=== PATIENT | female | born 1990 | race Caucasian/White ===

== ENCOUNTER 2016-12-30 00:11 | Emergency (ER) | payer OTHER ==
--- NOTE | 2016-12-30 01:46 | ED NURSING NOTES ---
Clinical Report - Nurses [place] [address] [place] [address] 12/30/2016 0:15 Patient: KATHLEEN VAZQUEZ TRIAGE Triage time 00:20. Acuity: LEVEL 4. Chief Complaint: RIGHT LOWER EXTREMITY PAIN. --00:25 Jocelyne De R.N. 00:20 12/30/16. BP: 142/104 taken on the left arm, while lying. HR: 88 (regular and normal rate). RR: 18. O2 saturation: 95%. Temp: 98.2 F. Pain level now: 01/26. --00:25 Jocelyne De R.N. Weight: 71.6 kg stated. Height/Length: 65 inches Per Patient. BMI: 26.3. --00:22 Jocelyne De R.N. Medications None. --00:23 Jocelyne De R.N. Allergies No Known Drug Allergy. --00:23 Jocelyne De R.N. History Arrived by private vehicle. Historian: patient. Accompanied by friend. Primary physician (none). Injury occurred. This occurred just prior to arrival. ( running and heard a tear in left calf severe pain and tender to walk). She has had moderate trouble walking. The patient has been limping when trying to walk. Treatment TAX COMPLIANCE REPRESENTATIVE: Ice. PAST MEDICAL HX: Tetanus status: up-to-date. Immunizations: up-to-date. Last normal menstrual period- 8 days ago. 0. Para 0. Abortions 0. Sexual history - sexually active. No contraception. Denies current . SOCIAL HX: Never smoker. Occasional alcohol use. No drug use. No infectious disease exposure. ABUSE ASSESSMENT: No report of abuse. SELF HARM ASSESSMENT: A self harm assessment was performed. The patient answered "no" to the question "Have you recently felt down, depressed, or hopeless?", "Have you noticed less interest or pleasure in doing things?", "Do you have thoughts of harming or killing yourself?", "Are you here because you tried to hurt yourself?", "Have you ever tried to hurt yourself before today?", "Have you recently had thoughts about harming or killing others?" and "Do you have any dangerous items in your possession?". FALL RISK ASSESSMENT: Fall risk assessment completed. No fall risk identified. NUTRITIONAL RISK ASSESSMENT: The nutritional risk assessment revealed no deficiencies. FUNCTIONAL ASSESSMENT: Functional assessment: no impairments noted. LEARNING NEEDS ASSESSMENT: The learning needs assessment revealed no barriers. SKIN INTEGRITY ASSESSMENT: Skin integrity risk assessment completed. No skin integrity risk identified. --00:25 Jocelyne De R.N. ADDITIONAL SURGERIES: no known surgeries. Interventions ID band on patient. --00:25 Jocelyne De R.N. PHYSICAL ASSESSMENT To room via wheelchair. GENERAL / NEURO / PSYCH: Oriented X 4. Alert. Appears in no acute distress. EXTREMITIES: Increased with dorsiflexion right-sided calf tenderness. Extremity pulses are within normal limits. Extremities exhibit normal ROM. Neuro-vascular status intact to the extremity. No lower extremity edema. Normal gait. Left leg: tenderness. Limited weight bearing secondary to pain. SKIN: Skin intact. Skin is warm and dry. --00:25 Jocelyne De R.N. NURSING PROGRESS NOTES Two patient identifiers checked. Call light placed in reach. Side rails up x 1. Bed placed in lowest position. Brakes of bed on. Patient ready for evaluation- chart flagged. --00:26 Jocelyne De R.N. ( pt updated on wait time). --00:54 Jocelyne De R.N. <<STRICKEN ENTRY-- Wound cleansed. 3D boot applied to left foot by tech; distal pulses intact, sensation intact and motor function within normal limits. Patient fit with new crutches. Crutch training performed by tech; the patient demonstrated proper use. --02: [facility] Rebeca --END STRIKE>> No wound, therefore no wound cleansed. --: [facility] 3D boot applied to left foot by tech; distal pulses intact, sensation intact and motor function within normal limits. Patient fit with new crutches. Crutch training performed by tech; the patient demonstrated proper use. --: [facility] Re[facility]a. DISPOSITION / DISCHARGE Condition at departure: unchanged and stable. No learning barriers present. Discharge instructions provided and reviewed with the patient. Reviewed medication(s) side effects, precautions, dosing and course information. Prescription(s) given to the patient. Reviewed referral to an orthopedic surgeon for followup. Patient verbalized understanding. Written instructions provided in Albanian. The patient was discharged home and accompanied by family. She left the Emergency Department on crutches and via private vehicle. Family member driving. --02:34 Jocelyne De R.N. 02:23 12/30/16. BP: 138/94 taken on the left arm, while sitting. HR: 74 (regular and normal rate). RR: 18 (regular and unlabored). O2 saturation: 99% on room air. Temp: deferred. Pain level now: 12/27. --02:34 Jocelyne De R.N. Departure time: 222. --02:35 Jocelyne De R.N. Locked/Released at 12/30/2016 2:37 by Jocelyne De R.N.
--- NOTE | 2016-12-30 01:46 | ED ORDER SUMMARY ---
..... Patient: KATHLEEN VAZQUEZ OrderSheet [facility] VisitID: [id number] [address] [place] [address] 26y, F Registration Date/Time: 12/30/2016 ORDER SHEET Weight: 71.6 kg (stated) Allergies: No Known Drug Allergy GENERAL ORDERS: Orthopedic Boot (01:12/30/2016 Yaw WHITT) (2:19 [place]) Crutches (:12/30/2016 Yaw WHITT) (2:19 [place]) MEDICATION ORDERS: IV FLUIDS: ORDER SHEET NOTES: [Electronically signed by Jocelyne De R.N. (02:37 12/30/2016)] [Electronically signed by Dawit Queen MD (10:18 01/01/2017)] [Electronically locked/signed by Jocelyne De R.N. (02:37 12/30/2016)]
--- NOTE | 2016-12-30 01:46 | ED CLINICAL REPORT ---
Clinical Report - Physicians/Mid Levels [facility] [address] [place] [address] 12/30/2016 0:15 Patient: KATHLEEN VAZQUEZ Time Seen: 00:39. Arrived- By private vehicle. Historian- patient. HISTORY OF PRESENT ILLNESS Chief Complaint: Injury to left leg. The injury happened just prior to arrival. Occurred on a street. Injury secondary to other mechansim. Patient is experiencing severe pain. No other injury. (She was running and heard and felt a "pop" in her L calf. She says that she had strained her L leg earlier in the day). REVIEW OF SYSTEMS The patient complains of pain on weight bearing. She has had new onset of mild swelling of the left lower leg. No chills, fever, sweats, chest pain or cough. No difficulty breathing, pedal edema, palpitations, abdominal pain or constipation. No diarrhea, nausea, vomiting or urinary problems. All systems otherwise negative, except as recorded above. SOCIAL HISTORY Never smoker. Occasional alcohol use. No drug use. She lives with a family member. Has good social support. FAMILY HISTORY No significant family medical history. ADDITIONAL NOTES The nursing notes have been reviewed. PHYSICAL EXAM Vital Signs: 12/30/2016 00:20 BP: 142/104. HR: 88. RR: 18. O2 saturation: 95%. Temp: 98.2 F. Pain level now: 7/10. Have been reviewed. Appearance: Alert. Head: Head atraumatic. Eyes: Pupils equal, round and reactive to light. ENT: Pharynx normal. Neck: Neck supple. CVS: Heart sounds normal. Respiratory: Breath sounds normal. Abdomen: No visible injury. Back: ROM normal. Skin: Skin intact. Skin warm and dry. Normal skin color. Normal skin turgor. Extremities: Left leg. Gait: The patient was unable to bear weight. Neuro, Vascular and Tendons: Vascular status intact. Sensation intact. Motor intact. Functional tendon deficit left leg (L positive Brumfield's squeeze test). Neuro: No motor deficit. No sensory deficit. PROGRESS AND PROCEDURES Course of Care: Patient is stable. Patient/family counseled. Old medical records reviewed. Disposition: Discharged. Condition: stable. CLINICAL IMPRESSION Ruptured Achilles tendon left ankle. INSTRUCTIONS Apply ice for 20 minutes four times a day until better. Don't apply ice directly to skin and don't use while asleep. Use crutches until released. Wear boot orthosis until released. No driving or operating machinery while taking medication. You may walk and bear weight as tolerated. Warnings: COMPLICATIONS: Complications from this condition include: possible injury to a tendon. Future problems may include loss of function and pain. It is important to follow up with a physician for further evaluation and treatment. GENERAL WARNINGS: Return or contact your physician immediately if your condition worsens or changes unexpectedly, if not improving as expected, or if other problems arise. Prescription Medications: Hydrocodone/APAP 5mg/325mg: take 1 to 2 orally every 6 hours as needed for pain. Dispense fifteen (15). No refills. OTC Medications: Motrin (available over the counter): take according to label instructions. Understanding of the discharge instructions verbalized by patient, parent and family. [facility]up with: [facility], , [address], , [place], [address] Follow up tomorrow. Call for the next available appointment. (Electronically signed by Dawit Queen MD 01/01/2017 10:18)
--- NOTE | 2016-12-30 01:46 | ED ORDER SUMMARY ---
..... Patient: KATHLEEN VAZQUEZ OrderSheet [facility] VisitID: [id number] [address] [place] [address] 26y, F Registration Date/Time: 12/30/2016 ORDER SHEET Weight: 71.6 kg (stated) Allergies: No Known Drug Allergy GENERAL ORDERS: Orthopedic Boot (01:12/30/2016 Yaw WHITT) (2:19 [place]) Crutches (:12/30/2016 Yaw WHITT) (2:19 [place]) MEDICATION ORDERS: IV FLUIDS: ORDER SHEET NOTES: [Electronically signed by Jocelyne De R.N. (02:37 12/30/2016)] [Electronically signed by Dawit Queen MD (10:18 01/01/2017)] [Electronically locked/signed by Jocelyne De R.N. (02:37 12/30/2016)]
--- NOTE | 2016-12-30 01:46 | ED NURSING NOTES ---
Clinical Report - Nurses [place] [address] [place] [address] 12/30/2016 0:15 Patient: KATHLEEN VAZQUEZ TRIAGE Triage time 00:20. Acuity: LEVEL 4. Chief Complaint: RIGHT LOWER EXTREMITY PAIN. --00:25 Jocelyne De R.N. 00:20 12/30/16. BP: 142/104 taken on the left arm, while lying. HR: 88 (regular and normal rate). RR: 18. O2 saturation: 95%. Temp: 98.2 F. Pain level now: 01/26. --00:25 Jocelyne De R.N. Weight: 71.6 kg stated. Height/Length: 65 inches Per Patient. BMI: 26.3. --00:22 Jocelyne De R.N. Medications None. --00:23 Jocelyne De R.N. Allergies No Known Drug Allergy. --00:23 Jocelyne De R.N. History Arrived by private vehicle. Historian: patient. Accompanied by friend. Primary physician (none). Injury occurred. This occurred just prior to arrival. ( running and heard a tear in left calf severe pain and tender to walk). She has had moderate trouble walking. The patient has been limping when trying to walk. Treatment PRESS OPERATOR: Ice. PAST MEDICAL HX: Tetanus status: up-to-date. Immunizations: up-to-date. Last normal menstrual period- 8 days ago. 0. Para 0. Abortions 0. Sexual history - sexually active. No contraception. Denies current . SOCIAL HX: Never smoker. Occasional alcohol use. No drug use. No infectious disease exposure. ABUSE ASSESSMENT: No report of abuse. SELF HARM ASSESSMENT: A self harm assessment was performed. The patient answered "no" to the question "Have you recently felt down, depressed, or hopeless?", "Have you noticed less interest or pleasure in doing things?", "Do you have thoughts of harming or killing yourself?", "Are you here because you tried to hurt yourself?", "Have you ever tried to hurt yourself before today?", "Have you recently had thoughts about harming or killing others?" and "Do you have any dangerous items in your possession?". FALL RISK ASSESSMENT: Fall risk assessment completed. No fall risk identified. NUTRITIONAL RISK ASSESSMENT: The nutritional risk assessment revealed no deficiencies. FUNCTIONAL ASSESSMENT: Functional assessment: no impairments noted. LEARNING NEEDS ASSESSMENT: The learning needs assessment revealed no barriers. SKIN INTEGRITY ASSESSMENT: Skin integrity risk assessment completed. No skin integrity risk identified. --00:25 Jocelyne De R.N. ADDITIONAL SURGERIES: no known surgeries. Interventions ID band on patient. --00:25 Jocelyne De R.N. PHYSICAL ASSESSMENT To room via wheelchair. GENERAL / NEURO / PSYCH: Oriented X 4. Alert. Appears in no acute distress. EXTREMITIES: Increased with dorsiflexion right-sided calf tenderness. Extremity pulses are within normal limits. Extremities exhibit normal ROM. Neuro-vascular status intact to the extremity. No lower extremity edema. Normal gait. Left leg: tenderness. Limited weight bearing secondary to pain. SKIN: Skin intact. Skin is warm and dry. --00:25 Jocelyne De R.N. NURSING PROGRESS NOTES Two patient identifiers checked. Call light placed in reach. Side rails up x 1. Bed placed in lowest position. Brakes of bed on. Patient ready for evaluation- chart flagged. --00:26 Jocelyne De R.N. ( pt updated on wait time). --00:54 Jocelyne De R.N. <<STRICKEN ENTRY-- Wound cleansed. 3D boot applied to left foot by tech; distal pulses intact, sensation intact and motor function within normal limits. Patient fit with new crutches. Crutch training performed by tech; the patient demonstrated proper use. --02: [facility] Rebeca --END STRIKE>> No wound, therefore no wound cleansed. --: [facility] 3D boot applied to left foot by tech; distal pulses intact, sensation intact and motor function within normal limits. Patient fit with new crutches. Crutch training performed by tech; the patient demonstrated proper use. --: [facility] Rebeca. DISPOSITION / DISCHARGE Condition at departure: unchanged and stable. No learning barriers present. Discharge instructions provided and reviewed with the patient. Reviewed medication(s) side effects, precautions, dosing and course information. Prescription(s) given to the patient. Reviewed referral to an orthopedic surgeon for followup. Patient verbalized understanding. Written instructions provided in Slovak. The patient was discharged home and accompanied by family. She left the Emergency Department on crutches and via private vehicle. Family member driving. --02:34 Jocelyne De R.N. 02:23 12/30/16. BP: 138/94 taken on the left arm, while sitting. HR: 74 (regular and normal rate). RR: 18 (regular and unlabored). O2 saturation: 99% on room air. Temp: deferred. Pain level now: 12/27. --02:34 Jocelyne De R.N. Departure time: 222. --02:35 Jocelyne De R.N. Locked/Released at 12/30/2016 2:37 by Jocelyne De R.N.
--- NOTE | 2016-12-30 01:46 | ED CLINICAL REPORT ---
Clinical Report - Physicians/Mid Levels [facility] [address] [place] [address] 12/30/2016 0:15 Patient: KATHLEEN VAZQUEZ Time Seen: 00:39. Arrived- By private vehicle. Historian- patient. HISTORY OF PRESENT ILLNESS Chief Complaint: Injury to left leg. The injury happened just prior to arrival. Occurred on a street. Injury secondary to other mechansim. Patient is experiencing severe pain. No other injury. (She was running and heard and felt a "pop" in her L calf. She says that she had strained her L leg earlier in the day). REVIEW OF SYSTEMS The patient complains of pain on weight bearing. She has had new onset of mild swelling of the left lower leg. No chills, fever, sweats, chest pain or cough. No difficulty breathing, pedal edema, palpitations, abdominal pain or constipation. No diarrhea, nausea, vomiting or urinary problems. All systems otherwise negative, except as recorded above. SOCIAL HISTORY Never smoker. Occasional alcohol use. No drug use. She lives with a family member. Has good social support. FAMILY HISTORY No significant family medical history. ADDITIONAL NOTES The nursing notes have been reviewed. PHYSICAL EXAM Vital Signs: 12/30/2016 00:20 BP: 142/104. HR: 88. RR: 18. O2 saturation: 95%. Temp: 98.2 F. Pain level now: 7/10. Have been reviewed. Appearance: Alert. Head: Head atraumatic. Eyes: Pupils equal, round and reactive to light. ENT: Pharynx normal. Neck: Neck supple. CVS: Heart sounds normal. Respiratory: Breath sounds normal. Abdomen: No visible injury. Back: ROM normal. Skin: Skin intact. Skin warm and dry. Normal skin color. Normal skin turgor. Extremities: Left leg. Gait: The patient was unable to bear weight. Neuro, Vascular and Tendons: Vascular status intact. Sensation intact. Motor intact. Functional tendon deficit left leg (L positive Brumfield's squeeze test). Neuro: No motor deficit. No sensory deficit. PROGRESS AND PROCEDURES Course of Care: Patient is stable. Patient/family counseled. Old medical records reviewed. Disposition: Discharged. Condition: stable. CLINICAL IMPRESSION Ruptured Achilles tendon left ankle. INSTRUCTIONS Apply ice for 20 minutes four times a day until better. Don't apply ice directly to skin and don't use while asleep. Use crutches until released. Wear boot orthosis until released. No driving or operating machinery while taking medication. You may walk and bear weight as tolerated. Warnings: COMPLICATIONS: Complications from this condition include: possible injury to a tendon. Future problems may include loss of function and pain. It is important to follow up with a physician for further evaluation and treatment. GENERAL WARNINGS: Return or contact your physician immediately if your condition worsens or changes unexpectedly, if not improving as expected, or if other problems arise. Prescription Medications: Hydrocodone/APAP 5mg/325mg: take 1 to 2 orally every 6 hours as needed for pain. Dispense fifteen (15). No refills. OTC Medications: Motrin (available over the counter): take according to label instructions. Understanding of the discharge instructions verbalized by patient, parent and family. [facility]-up with: [facility], , [address], , [place], [address] Follow up tomorrow. Call for the next available appointment. (Electronically signed by Dawit Queen MD 01/01/2017 10:18)
--- NOTE | 2017-01-01 10:18 | ED MED RECONCILIATION SUMMARY ---
Patient: KATHLEEN VAZQUEZ Medication Reconciliation Report Merged With [facility] VisitID: [id number] [place] [address] 26y, F Registration Date/Time: 12/30/2016 Weight: 71.6 kg Height/Length: 65 in. BMI: 26.3 ALLERGIES: No Known Drug Allergy The patient's Home Medications are listed below: NONE. The source(s) of the original Home Medication information: Not obtained. The following Medications were given to the patient in the Emergency Department: None. The following Medications were prescribed to the patient: Motrin (available over the counter): take according to label instructions. -- Dawit Queen MD Hydrocodone/APAP 5mg/325mg: take 1 to 2 orally every 6 hours as needed for pain. Dispense fifteen (15). No refills. -- Dawit Queen MD
--- NOTE | 2017-01-01 10:18 | ED DISCHARGE INSTRUCTIONS ---
Patient: KATHLEEN VAZQUEZ General Instructions [facility] VisitID: [id number] [address] [address] 26y, F Registration Date/Time: 12/30/2016 Ruptured Achilles tendon left ankle. INSTRUCTIONS Apply ice for 20 minutes four times a day until better. Don't apply ice directly to skin and don't use while asleep. Use crutches until released. Wear boot orthosis until released. No driving or operating machinery while taking medication. You may walk and bear weight as tolerated. Warnings: COMPLICATIONS: Complications from this condition include: possible injury to a tendon. Future problems may include loss of function and pain. It is important to follow up with a physician for further evaluation and treatment. GENERAL WARNINGS: Return or contact your physician immediately if your condition worsens or changes unexpectedly, if not improving as expected, or if other problems arise. Prescription Medications: Hydrocodone/APAP 5mg/325mg: take 1 to 2 orally every 6 hours as needed for pain. Dispense fifteen (15). No refills. OTC Medications: Motrin (available over the counter): take according to label instructions. Understanding of the discharge instructions verbalized by patient, parent and family. Follow-up with: [facility], , [address], [place], [address] Follow up tomorrow. Call for the next available appointment. ADDITIONAL INFORMATION Achilles Tendon Rupture [Partial Or Complete] The Achilles tendon connects the muscles in the back of your lower leg to your heel bone. It allows you to move your foot down (step on the gas motion). This movement is essential for walking, running, and jumping. A sudden strong contraction of the lower leg (such as when playing sports) can partially tear or rupture the Achilles tendon. This injury is more likely if there is prior injury or inflammation of that tendon from prior stress. You may feel a pop or snap, or like you have been kicked. An Achilles tendon tear will cause local swelling and pain and difficulty in walking. A complete Achilles rupture is usually treated with surgery to attach the torn ends of the tendon. This is followed by 6-8 weeks in a walking cast, boot, or splint. Nonsurgical treatment is an option, but it will take longer to heal and the risk of repeat rupture is greater. With either type of treatment, you will need a physical therapy program to strengthen your Achilles tendon. It will take 4-6 months to return to your former level of activity. Home Care: Use crutches as directed. Do not put any weight on the injured leg until advised by your doctor. Keep your leg elevated when sitting or lying down. This is very important during the first 48 hours. Make an ice pack (ice cubes in a plastic bag, wrapped in a towel) and apply over the injured area for 20 minutes every 1-2 hours the first day. You should continue with ice packs 3-4 times a day for the next two days. Continue the use of ice packs for relief of pain and swelling as needed. You may use acetaminophen (Tylenol) or ibuprofen (Motrin, Advil) to control pain, unless another medicine was prescribed. [NOTE: If you have chronic liver or kidney disease or ever had a stomach ulcer or GI bleeding, talk with your doctor before using these medicines.] Keep the splint or cast dry. When bathing, protect it with a large plastic bag, rubber-banded at the top end. If a fiberglass splint or cast gets wet, you can dry it with a hairdryer. Follow Up with your doctor as directed by our staff. [NOTE: If X-rays were taken, they will be reviewed by a radiologist. You will be notified of any new findings that may affect your care.] Return Promptly or contact your doctor if any of the following occurs: The plaster splint or cast gets wet or soft or breaks The fiberglass splint or cast gets wet and does not dry for 24 hours Pain or swelling increases, or redness appears Toes become cold, blue, numb or tingly Crutch Walking Crutch Adjustment Make sure the crutches you use are adjusted to fit you. When you stand, there should be room to fit 2-3 fingers between the top of the crutch and your armpit. Your elbow should be slightly bent when holding the hand section crews activities clerk. Crutch Walking: Place the crutches forward 12" in front of and 6" to the side of your feet. Lean your weight forward as you push down on the handgrips. Your weight should be on your hands and yourstrong leg, not your armpits . Let your body swing through, landing on the strong leg. Advance the crutches forward again. The crutch and the injured leg should move together. Going Up Steps: ("Up with the good") With both crutches on the same step as your feet, push down on the handgrips. Balancing with very light pressure on the weak leg, let your hands support your weight as you raise your strong leg onto the next higher step. Transfer all your weight to your strong leg (still bent) as you move the crutches up to the next step alongside the strong leg. With your weight evenly balanced on the two crutches and your strong leg, straighten your strong knee as you raise the weak leg up to the next step. Going Down Steps: ("Down with the bad") With both crutches on the same step as your feet, push down on the handgrips. With your weight evenly balanced on the two crutches and your strong leg, bend your strong knee as you lower the weak leg down to the next step. Let your strong leg support you (still bent) as you move the crutches down alongside the weak leg. Transfer your weight to your hands, balancing with very light pressure on the weak leg as you lower your strong leg alongside your weak leg. Aircast Sp-Walker Boot Traditional splints and casts for the foot and ankle protect the injury by preventing movement at the joints. However, many injuries heal better and faster if the injured joint can be moved, while protected at the same time. This is the reason for using an Aircast Walker boot. This is a short boot that provides support and protection to the foot and ankle while allowing you to walk. It contains padded air cells that provide compression and help circulation. It is used for both foot and ankle injuries - both sprains and minor fractures. Ankle and foot sprains can take 4-6 weeks to heal. Persons with severe injuries or over age 60 may require more time to heal. During that time, you are prone to re-injury by suddenly twisting your foot or ankle again while the ligaments are still weak. When treating a sprain, the AirCast Walker boot should be worn whenever walking for at least four weeks, or as long as you continue to have ankle pain. Talk to your doctor for specific advice about the treatment of your condition. Air-Stirrup and SP-Walker are trademarks of [employer]. For more information about their products, see www.[employer]. Hydrocodone Bitartrate, Acetaminophen Oral tablet What is this medicine? ACETAMINOPHEN; HYDROCODONE (a set a JOEL nena fen; andrea droe KOE done) is a pain reliever. It is used to treat mild to moderate pain. How should I use this medicine? Take this medicine by mouth. Swallow it with a full glass of water. Follow the directions on the prescription label. If the medicine upsets your stomach, take the medicine with food or milk. Do not take more than you are told to take. Talk to your warehouse production worker regarding the use of this medicine in children. This medicine is not approved for use in children. What side effects may I notice from receiving this medicine? Side effects that you should report to your doctor or health career guidance counselor as soon as possible: allergic reactions like skin rash, itching or hives, swelling of the face, lips, or tongue breathing problems confusion feeling faint or lightheaded, falls stomach pain yellowing of the eyes or skin Side effects that usually do not require medical attention (report to your doctor or health career guidance counselor if they continue or are bothersome): nausea, vomiting stomach upset What may interact with this medicine? alcohol antihistamines isoniazid medicines for depression, anxiety, or psychotic disturbances medicines for sleep muscle relaxants naltrexone narcotic medicines (opiates) for pain phenobarbital ritonavir tramadol What if I miss a dose? If you miss a dose, take it as soon as you can. If it is almost time for your next dose, take only that dose. Do not take double or extra doses. Where should I keep my medicine? Keep out of the reach of children. This medicine can be abused. Keep your medicine in a safe place to protect it from theft. Do not share this medicine with anyone. Selling or giving away this medicine is dangerous and against the law. Store at room temperature between 15 and 30 degrees C (59 and 86 degrees F). Protect from light. Keep container tightly closed. Throw away any unused medicine after the expiration date. Discard unused medicine and used packaging carefully. Pets and children can be harmed if they find used or lost packages. What should I tell my health care provider before I take this medicine? They need to know if you have any of these conditions: brain tumor Crohn's disease, inflammatory bowel disease, or ulcerative colitis drink more than 3 alcohol-containing drinks per day drug abuse or addiction head injury heart or circulation problems kidney disease or problems going to the bathroom liver disease lung disease, asthma, or breathing problems an unusual or allergic reaction to acetaminophen, hydrocodone, other opioid analgesics, other medicines, foods, dyes, or preservatives or trying to get breast-feeding What should I watch for while using this medicine? Tell your doctor or health career guidance counselor if your pain does not go away, if it gets worse, or if you have new or a different type of pain. You may develop tolerance to the medicine. Tolerance means that you will need a higher dose of the medicine for pain relief. Tolerance is normal and is expected if you take the medicine for a long time. Do not suddenly stop taking your medicine because you may develop a severe reaction. Your body becomes used to the medicine. This does NOT mean you are addicted. Addiction is a behavior related to getting and using a drug for a non-medical reason. If you have pain, you have a medical reason to take pain medicine. Your doctor will tell you how much medicine to take. If your doctor wants you to stop the medicine, the dose will be slowly lowered over time to avoid any side effects. You may get drowsy or dizzy when you first start taking the medicine or change doses. Do not drive, use machinery, or do anything that may be dangerous until you know how the medicine affects you. Stand or sit up slowly. There are different types of narcotic medicines (opiates) for pain. If you take more than one type at the same time, you may have more side effects. Give your health care provider a list of all medicines you use. Your doctor will tell you how much medicine to take. Do not take more medicine than directed. Call emergency for help if you have problems breathing. The medicine will cause constipation. Try to have a bowel movement at least every 2 to 3 days. If you do not have a bowel movement for 3 days, call your doctor or health career guidance counselor. Too much acetaminophen can be very dangerous. Do not take Tylenol (acetaminophen) or medicines that contain acetaminophen with this medicine. Many non-prescription medicines contain acetaminophen. Always read the labels carefully. Ibuprofen Oral tablet What is this medicine? IBUPROFEN (eye BYOO proe fen) is a non-steroidal anti-inflammatory drug (NSAID). It is used for dental pain, fever, headaches or migraines, osteoarthritis, rheumatoid arthritis, or painful monthly periods. It can also relieve minor aches and pains caused by a cold, flu, or sore throat. How should I use this medicine? Take this medicine by mouth with a glass of water. Follow the directions on the prescription label. Take this medicine with food if your stomach gets upset. Try to not lie down for at least 10 minutes after you take the medicine. Take your medicine at regular intervals. Do not take your medicine more often than directed. A special MedGuide will be given to you by the pharmacist with each prescription and refill. Be sure to read this information carefully each time. Talk to your warehouse production worker regarding the use of this medicine in children. Special care may be needed. What side effects may I notice from receiving this medicine? Side effects that you should report to your doctor or health career guidance counselor as soon as possible: allergic reactions like skin rash, itching or hives, swelling of the face, lips, or tongue black or bloody stools, blood in the urine or in vomit breathing problems changes in vision chest pain general ill feeling or flu-like symptoms nausea or vomiting redness, blistering, peeling or loosening of the skin, including inside the mouth slurred speech or weakness on one side of the body stomach pain unexplained weight gain or swelling unusually weak or tired yellowing of eyes or skin Side effects that usually do not require medical attention (report to your doctor or health career guidance counselor if they continue or are bothersome): constipation or diarrhea dizziness gas or heartburn stomach upset What may interact with this medicine? Do not take this medicine with any of the following medications: cidofovir ketorolac methotrexate pemetrexed This medicine may also interact with the following medications: alcohol aspirin diuretics lithium other drugs for inflammation like prednisone warfarin What if I miss a dose? If you miss a dose, take it as soon as you can. If it is almost time for your next dose, take only that dose. Do not take double or extra doses. Where should I keep my medicine? Keep out of the reach of children. Store at room temperature between 15 and 30 degrees C (59 and 86 degrees F). Keep container tightly closed. Throw away any unused medicine after the expiration date. What should I tell my health care provider before I take this medicine? They need to know if you have any of these conditions: asthma cigarette smoker drink more than 3 alcohol containing drinks a day heart disease or circulation problems such as heart failure or leg edema (fluid retention) high blood pressure kidney disease liver disease stomach bleeding or ulcers an unusual or allergic reaction to ibuprofen, aspirin, other NSAIDS, other medicines, foods, dyes, or preservatives or trying to get breast-feeding What should I watch for while using this medicine? Tell your doctor or healthcare professional if your symptoms do not start to get better or if they get worse. This medicine does not prevent heart attack or stroke. In fact, this medicine may increase the chance of a heart attack or stroke. The chance may increase with longer use of this medicine and in people who have heart disease. If you take aspirin to prevent heart attack or stroke, talk with your doctor or health career guidance counselor. Do not take other medicines that contain aspirin, ibuprofen, or naproxen with this medicine. Side effects such as stomach upset, nausea, or ulcers may be more likely to occur. Many medicines available without a prescription should not be taken with this medicine. This medicine can cause ulcers and bleeding in the stomach and intestines at any time during treatment. Ulcers and bleeding can happen without warning symptoms and can cause . To reduce your risk, do not smoke cigarettes or drink alcohol while you are taking this medicine. You may get drowsy or dizzy. Do not drive, use machinery, or do anything that needs mental alertness until you know how this medicine affects you. Do not stand or sit up quickly, especially if you are an older patient. This reduces the risk of dizzy or fainting spells. This medicine can cause you to bleed more easily. Try to avoid damage to your teeth and gums when you brush or floss your teeth. You have been given the following additional information: Achilles Tendon Rupture Crutch Walking Walker Boot Hydrocodone Bitartrate, Acetaminophen Oral tablet Ibuprofen Oral tablet No driving or operating machinery while taking medication. You may walk and bear weight as tolerated. (Electronically signed by Dawit Queen MD 01/01/2017 10:18)
--- NOTE | 2017-01-01 10:18 | ED MED RECONCILIATION SUMMARY ---
Patient: KATHLEEN VAZQUEZ Medication Reconciliation Report [facility] VisitID: [id number] [place] [address] 26y, F Registration Date/Time: 12/30/2016 Weight: 71.6 kg Height/Length: 65 in. BMI: 26.3 ALLERGIES: No Known Drug Allergy The patient's Home Medications are listed below: NONE. The source(s) of the original Home Medication information: Not obtained. The following Medications were given to the patient in the Emergency Department: None. The following Medications were prescribed to the patient: Motrin (available over the counter): take according to label instructions. -- Dawit Queen MD Hydrocodone/APAP 5mg/325mg: take 1 to 2 orally every 6 hours as needed for pain. Dispense fifteen (15). No refills. -- Dawit Queen MD
--- NOTE | 2017-01-01 10:18 | ED MAR SUMMARY ---
..... Medication Administration Record [facility] [address], [place] [id number] Patient: KATHLEEN VAZQUEZ Visit ID: [id number] 26y, F Weight: 71.6 kg Height/Length: 65 in BMI: 26.3 ALLERGIES: No Known Drug Allergy
--- NOTE | 2017-01-01 10:18 | ED DISCHARGE INSTRUCTIONS ---
Patient: KATHLEEN VAZQUEZ General Instructions Formerly [facility] VisitID: [id number] [address] [place] [address] 26y, F Registration Date/Time: 12/30/2016 Ruptured Achilles tendon left ankle. INSTRUCTIONS Apply ice for 20 minutes four times a day until better. Don't apply ice directly to skin and don't use while asleep. Use crutches until released. Wear boot orthosis until released. No driving or operating machinery while taking medication. You may walk and bear weight as tolerated. Warnings: COMPLICATIONS: Complications from this condition include: possible injury to a tendon. Future problems may include loss of function and pain. It is important to follow up with a physician for further evaluation and treatment. GENERAL WARNINGS: Return or contact your physician immediately if your condition worsens or changes unexpectedly, if not improving as expected, or if other problems arise. Prescription Medications: Hydrocodone/APAP 5mg/325mg: take 1 to 2 orally every 6 hours as needed for pain. Dispense fifteen (15). No refills. OTC Medications: Motrin (available over the counter): take according to label instructions. Understanding of the discharge instructions verbalized by patient, parent and family. Follow-up with: [facility], , [address], [place], [id number] Follow up tomorrow. Call for the next available appointment. ADDITIONAL INFORMATION Achilles Tendon Rupture [Partial Or Complete] The Achilles tendon connects the muscles in the back of your lower leg to your heel bone. It allows you to move your foot down (step on the gas motion). This movement is essential for walking, running, and jumping. A sudden strong contraction of the lower leg (such as when playing sports) can partially tear or rupture the Achilles tendon. This injury is more likely if there is prior injury or inflammation of that tendon from prior stress. You may feel a pop or snap, or like you have been kicked. An Achilles tendon tear will cause local swelling and pain and difficulty in walking. A complete Achilles rupture is usually treated with surgery to attach the torn ends of the tendon. This is followed by 6-8 weeks in a walking cast, boot, or splint. Nonsurgical treatment is an option, but it will take longer to heal and the risk of repeat rupture is greater. With either type of treatment, you will need a physical therapy program to strengthen your Achilles tendon. It will take 4-6 months to return to your former level of activity. Home Care: Use crutches as directed. Do not put any weight on the injured leg until advised by your doctor. Keep your leg elevated when sitting or lying down. This is very important during the first 48 hours. Make an ice pack (ice cubes in a plastic bag, wrapped in a towel) and apply over the injured area for 20 minutes every 1-2 hours the first day. You should continue with ice packs 3-4 times a day for the next two days. Continue the use of ice packs for relief of pain and swelling as needed. You may use acetaminophen (Tylenol) or ibuprofen (Motrin, Advil) to control pain, unless another medicine was prescribed. [NOTE: If you have chronic liver or kidney disease or ever had a stomach ulcer or GI bleeding, talk with your doctor before using these medicines.] Keep the splint or cast dry. When bathing, protect it with a large plastic bag, rubber-banded at the top end. If a fiberglass splint or cast gets wet, you can dry it with a hairdryer. Follow Up with your doctor as directed by our staff. [NOTE: If X-rays were taken, they will be reviewed by a radiologist. You will be notified of any new findings that may affect your care.] Return Promptly or contact your doctor if any of the following occurs: The plaster splint or cast gets wet or soft or breaks The fiberglass splint or cast gets wet and does not dry for 24 hours Pain or swelling increases, or redness appears Toes become cold, blue, numb or tingly Crutch Walking Crutch Adjustment Make sure the crutches you use are adjusted to fit you. When you stand, there should be room to fit 2-3 fingers between the top of the crutch and your armpit. Your elbow should be slightly bent when holding the hand registry nurse. Crutch Walking: Place the crutches forward 12" in front of and 6" to the side of your feet. Lean your weight forward as you push down on the handgrips. Your weight should be on your hands and yourstrong leg, not your armpits . Let your body swing through, landing on the strong leg. Advance the crutches forward again. The crutch and the injured leg should move together. Going Up Steps: ("Up with the good") With both crutches on the same step as your feet, push down on the handgrips. Balancing with very light pressure on the weak leg, let your hands support your weight as you raise your strong leg onto the next higher step. Transfer all your weight to your strong leg (still bent) as you move the crutches up to the next step alongside the strong leg. With your weight evenly balanced on the two crutches and your strong leg, straighten your strong knee as you raise the weak leg up to the next step. Going Down Steps: ("Down with the bad") With both crutches on the same step as your feet, push down on the handgrips. With your weight evenly balanced on the two crutches and your strong leg, bend your strong knee as you lower the weak leg down to the next step. Let your strong leg support you (still bent) as you move the crutches down alongside the weak leg. Transfer your weight to your hands, balancing with very light pressure on the weak leg as you lower your strong leg alongside your weak leg. Aircast Sp-Walker Boot Traditional splints and casts for the foot and ankle protect the injury by preventing movement at the joints. However, many injuries heal better and faster if the injured joint can be moved, while protected at the same time. This is the reason for using an Aircast Walker boot. This is a short boot that provides support and protection to the foot and ankle while allowing you to walk. It contains padded air cells that provide compression and help circulation. It is used for both foot and ankle injuries - both sprains and minor fractures. Ankle and foot sprains can take 4-6 weeks to heal. Persons with severe injuries or over age 60 may require more time to heal. During that time, you are prone to re-injury by suddenly twisting your foot or ankle again while the ligaments are still weak. When treating a sprain, the AirCast Walker boot should be worn whenever walking for at least four weeks, or as long as you continue to have ankle pain. Talk to your doctor for specific advice about the treatment of your condition. Air-Stirrup and SP-Walker are trademarks of [employer]. For more information about their products, see www.[employer].TV (Wayin). Hydrocodone Bitartrate, Acetaminophen Oral tablet What is this medicine? ACETAMINOPHEN; HYDROCODONE (a set a JOEL nena fen; andrea droe KOE done) is a pain reliever. It is used to treat mild to moderate pain. How should I use this medicine? Take this medicine by mouth. Swallow it with a full glass of water. Follow the directions on the prescription label. If the medicine upsets your stomach, take the medicine with food or milk. Do not take more than you are told to take. Talk to your assembler trim regarding the use of this medicine in children. This medicine is not approved for use in children. What side effects may I notice from receiving this medicine? Side effects that you should report to your doctor or health care giver as soon as possible: allergic reactions like skin rash, itching or hives, swelling of the face, lips, or tongue breathing problems confusion feeling faint or lightheaded, falls stomach pain yellowing of the eyes or skin Side effects that usually do not require medical attention (report to your doctor or health care giver if they continue or are bothersome): nausea, vomiting stomach upset What may interact with this medicine? alcohol antihistamines isoniazid medicines for depression, anxiety, or psychotic disturbances medicines for sleep muscle relaxants naltrexone narcotic medicines (opiates) for pain phenobarbital ritonavir tramadol What if I miss a dose? If you miss a dose, take it as soon as you can. If it is almost time for your next dose, take only that dose. Do not take double or extra doses. Where should I keep my medicine? Keep out of the reach of children. This medicine can be abused. Keep your medicine in a safe place to protect it from theft. Do not share this medicine with anyone. Selling or giving away this medicine is dangerous and against the law. Store at room temperature between 15 and 30 degrees C (59 and 86 degrees F). Protect from light. Keep container tightly closed. Throw away any unused medicine after the expiration date. Discard unused medicine and used packaging carefully. Pets and children can be harmed if they find used or lost packages. What should I tell my health care provider before I take this medicine? They need to know if you have any of these conditions: brain tumor Crohn's disease, inflammatory bowel disease, or ulcerative colitis drink more than 3 alcohol-containing drinks per day drug abuse or addiction head injury heart or circulation problems kidney disease or problems going to the bathroom liver disease lung disease, asthma, or breathing problems an unusual or allergic reaction to acetaminophen, hydrocodone, other opioid analgesics, other medicines, foods, dyes, or preservatives or trying to get breast-feeding What should I watch for while using this medicine? Tell your doctor or health care giver if your pain does not go away, if it gets worse, or if you have new or a different type of pain. You may develop tolerance to the medicine. Tolerance means that you will need a higher dose of the medicine for pain relief. Tolerance is normal and is expected if you take the medicine for a long time. Do not suddenly stop taking your medicine because you may develop a severe reaction. Your body becomes used to the medicine. This does NOT mean you are addicted. Addiction is a behavior related to getting and using a drug for a non-medical reason. If you have pain, you have a medical reason to take pain medicine. Your doctor will tell you how much medicine to take. If your doctor wants you to stop the medicine, the dose will be slowly lowered over time to avoid any side effects. You may get drowsy or dizzy when you first start taking the medicine or change doses. Do not drive, use machinery, or do anything that may be dangerous until you know how the medicine affects you. Stand or sit up slowly. There are different types of narcotic medicines (opiates) for pain. If you take more than one type at the same time, you may have more side effects. Give your health care provider a list of all medicines you use. Your doctor will tell you how much medicine to take. Do not take more medicine than directed. Call emergency for help if you have problems breathing. The medicine will cause constipation. Try to have a bowel movement at least every 2 to 3 days. If you do not have a bowel movement for 3 days, call your doctor or health care giver. Too much acetaminophen can be very dangerous. Do not take Tylenol (acetaminophen) or medicines that contain acetaminophen with this medicine. Many non-prescription medicines contain acetaminophen. Always read the labels carefully. Ibuprofen Oral tablet What is this medicine? IBUPROFEN (eye BYOO proe fen) is a non-steroidal anti-inflammatory drug (NSAID). It is used for dental pain, fever, headaches or migraines, osteoarthritis, rheumatoid arthritis, or painful monthly periods. It can also relieve minor aches and pains caused by a cold, flu, or sore throat. How should I use this medicine? Take this medicine by mouth with a glass of water. Follow the directions on the prescription label. Take this medicine with food if your stomach gets upset. Try to not lie down for at least 10 minutes after you take the medicine. Take your medicine at regular intervals. Do not take your medicine more often than directed. A special MedGuide will be given to you by the pharmacist with each prescription and refill. Be sure to read this information carefully each time. Talk to your assembler trim regarding the use of this medicine in children. Special care may be needed. What side effects may I notice from receiving this medicine? Side effects that you should report to your doctor or health care giver as soon as possible: allergic reactions like skin rash, itching or hives, swelling of the face, lips, or tongue black or bloody stools, blood in the urine or in vomit breathing problems changes in vision chest pain general ill feeling or flu-like symptoms nausea or vomiting redness, blistering, peeling or loosening of the skin, including inside the mouth slurred speech or weakness on one side of the body stomach pain unexplained weight gain or swelling unusually weak or tired yellowing of eyes or skin Side effects that usually do not require medical attention (report to your doctor or health care giver if they continue or are bothersome): constipation or diarrhea dizziness gas or heartburn stomach upset What may interact with this medicine? Do not take this medicine with any of the following medications: cidofovir ketorolac methotrexate pemetrexed This medicine may also interact with the following medications: alcohol aspirin diuretics lithium other drugs for inflammation like prednisone warfarin What if I miss a dose? If you miss a dose, take it as soon as you can. If it is almost time for your next dose, take only that dose. Do not take double or extra doses. Where should I keep my medicine? Keep out of the reach of children. Store at room temperature between 15 and 30 degrees C (59 and 86 degrees F). Keep container tightly closed. Throw away any unused medicine after the expiration date. What should I tell my health care provider before I take this medicine? They need to know if you have any of these conditions: asthma cigarette smoker drink more than 3 alcohol containing drinks a day heart disease or circulation problems such as heart failure or leg edema (fluid retention) high blood pressure kidney disease liver disease stomach bleeding or ulcers an unusual or allergic reaction to ibuprofen, aspirin, other NSAIDS, other medicines, foods, dyes, or preservatives or trying to get breast-feeding What should I watch for while using this medicine? Tell your doctor or healthcare professional if your symptoms do not start to get better or if they get worse. This medicine does not prevent heart attack or stroke. In fact, this medicine may increase the chance of a heart attack or stroke. The chance may increase with longer use of this medicine and in people who have heart disease. If you take aspirin to prevent heart attack or stroke, talk with your doctor or health care giver. Do not take other medicines that contain aspirin, ibuprofen, or naproxen with this medicine. Side effects such as stomach upset, nausea, or ulcers may be more likely to occur. Many medicines available without a prescription should not be taken with this medicine. This medicine can cause ulcers and bleeding in the stomach and intestines at any time during treatment. Ulcers and bleeding can happen without warning symptoms and can cause . To reduce your risk, do not smoke cigarettes or drink alcohol while you are taking this medicine. You may get drowsy or dizzy. Do not drive, use machinery, or do anything that needs mental alertness until you know how this medicine affects you. Do not stand or sit up quickly, especially if you are an older patient. This reduces the risk of dizzy or fainting spells. This medicine can cause you to bleed more easily. Try to avoid damage to your teeth and gums when you brush or floss your teeth. You have been given the following additional information: Achilles Tendon Rupture Crutch Walking Walker Boot Hydrocodone Bitartrate, Acetaminophen Oral tablet Ibuprofen Oral tablet No driving or operating machinery while taking medication. You may walk and bear weight as tolerated. (Electronically signed by Dawit Queen MD 01/01/2017 10:18)
--- NOTE | 2017-01-01 10:18 | ED MAR SUMMARY ---
..... Medication Administration Record [facility] [address], [place] [id number] Patient: KATHLEEN VAZQUEZ Visit ID: [id number] 26y, F Weight: 71.6 kg Height/Length: 65 in BMI: 26.3 ALLERGIES: No Known Drug Allergy
== END 2016-12-30 02:23 | disposition home or self-care (01) ==
LOC: ED SRH 00:11
DX: S86.012A Strain of left Achilles tendon, initial encounter (principal); X50.9XXA Other and unspecified overexertion or strenuous movements or postures, initial encounter; Y93.02 Activity, running; Y92.410 Unspecified street and highway as the place of occurrence of the external cause; Y99.8 Other external cause status